=== PATIENT | male | born 1960 | race Caucasian/White ===

== ENCOUNTER 2016-12-11 09:18 | Emergency (ER) | payer BC, OTHER ==
[~2016-12-11] VITALS: Ht 182.9 cm; Wt 109.1 kg
[2016-12-11 10:09] LABS: BASO # 0.1 K/mm3 (0.0-0.2); BASO % 1.1 % (0.0-1.0); EOS # 0.1 K/mm3 (0.0-0.50); LARGE UNSTAINED CELL # 0.1 K/mm3 (0.0-0.4); LARGE UNSTAINED CELL % 1.5 % (0.0-4.0); LYMPH # 1.5 K/mm3 (1.5-4.5); LYMPH % 21.2 % (24.0-44.0); MEAN CORPUSCULAR HEMOGLOBIN 31.6 pg (27.0-33.0); MEAN CORPUSCULAR HGB CONC 34.6 g/dl (32.0-36.5); MEAN CORPUSCULAR VOLUME 91.2 fl (80.0-96.0); MONO # 0.5 K/mm3 (0.0-0.8); MONO % 7.2 % (0.0-5.0); NEUTROPHILS # 4.4 K/mm3 (1.8-7.7); NEUTROPHILS % 67.1 % (36.0-66.0); PLATELET COUNT, AUTOMATED 221 k/mm3 (150-450); RED CELL DISTRIBUTION WIDTH 11.8 % (11.5-14.5); WHITE BLOOD COUNT 6.5 K/mm3 (4.0-10.0)
--- NOTE | 2016-12-11 10:13 | REP ---
CT of the brain without IV contrast: There are no comparisons. There is no hemorrhage. There is no edema, mass effect or midline shift. Cortical stripe is unremarkable. The ventricles and sulci are mildly dilated compatible with mild diffuse volume loss. The visualized paranasal sinuses and mastoid air cells are clear. Impression: There is no hemorrhage, acute infarct or mass. There is mild diffuse volume loss. Signed by Janusz Lucero MD 12/11/2016 10:05 A
[2016-12-11 10:27] LABS: ALBUMIN 4.1 GM/DL (3.2-5.2); ALBUMIN/GLOBULIN RATIO 0.98 (1.00-1.93); ALKALINE PHOSPHATASE 60 U/L (45-117); ALT/SGPT 68 U/L (12-78); ANION GAP 6 MEQ/L (8-16); AST/SGOT 43 U/L (15-37); BILIRUBIN,DIRECT 0.1 MG/DL (0.0-0.2); BILIRUBIN,TOTAL 0.6 MG/DL (0.2-1.0); BLOOD UREA NITROGEN 11 MG/DL (7-18); CALCIUM LEVEL 9.5 MG/DL (8.5-10.1); CARBON DIOXIDE LEVEL 29 MEQ/L (21-32); CHLORIDE LEVEL 106 MEQ/L (98-107); CREATININE FOR GFR 0.89 MG/DL (0.70-1.30); GLOMERULAR FILTRATION RATE > 60.0 (>56); GLUCOSE, FASTING 107 MG/DL (70-105); POTASSIUM SERUM 4.4 MEQ/L (3.5-5.1); SODIUM LEVEL 141 MEQ/L (136-145); TOTAL PROTEIN 8.3 GM/DL (6.4-8.2)
[2016-12-11 10:54] VITALS: BP 137/82
--- NOTE | 2016-12-12 08:55 | ECGEPIP ---
Stationary ECG Study [facility] - ED Test Date: 2016-12-11 Pat Name: RUBY BEAULIEU Department: Room: - Gender: M [employer]: JT : 1960 Requested By: Jordana Cannon Order Number: [id number] Reading MD: Jordana Cannon Measurements Intervals [place] Rate: 59 P: 24 OH: 176 QRS: -14 QRSD: 105 T: 9 QT: 428 QTc: 424 Interpretive Statements SINUS BRADYCARDIA NO PRIOR FOR COMPARISON Electronically Signed On 12-12-2016 8:55:46 EDT by Jordana Cannon
== END 2016-12-11 11:06 | disposition home or self-care (01) ==
LOC: M ED 09:18
DX: H81.399 Other peripheral vertigo, unspecified ear (principal)

== ENCOUNTER → 2016-12-12 | Outpatient (CLI) | payer BC, OTHER ==
--- NOTE | 2016-12-13 05:28 | REP ---
Clinical: Visual disturbances and unsteady gait. Comparison: 08/03/2004 Technique: Turner scale and color Doppler evaluation using linear high frequency transducer Findings: Two-dimensional turner scale and color images demonstrate intimal thickening and small amounts of mixed plaquing along the common carotid arteries extending to the carotid bulbs (right greater than left). Otherwise normal arterial lumen with normal laminar flow and no appreciable narrowing. Color Doppler interrogation demonstrates normal arterial wave patterns and velocities with no significant spectral broadening. Normal flow direction is appreciated in the bilateral vertebral arteries. RIGHT (cm/s) LEFT (cm/s) ICA peak systolic velocity 67.6 54.3 ICA diastolic velocity 29.2 22.0 ECA peak systolic velocity 79.3 73.4 CCA peak systolic velocity 84.3 129.6 ICA/CCA ratio 0.80 0.42 Impression: No hemodynamically significant areas of narrowing or stenosis appreciated. Based on set standards narrowing falls within the less than 50% range. Signed by Long Casas MD 12/13/2016 05:20 A
== END ==
LOC: M RAD 08:19
PROVIDERS: ATTEND Emergency Medicine
DX: H53.8 Other visual disturbances (principal)

== ENCOUNTER → 2019-10-12 | Outpatient (CLI) | payer BC, OTHER ==
[~2019-10-12] MED LIST: ZETI10TA16 PO
== END ==
LOC: M LABSMTC 10:41
PROVIDERS: ATTEND Anesthesiology
DX: Z01.812 Encounter for preprocedural laboratory examination (principal); Z11.59 Encounter for screening for other viral diseases

== ENCOUNTER 2019-10-15 09:15 | Day surgery (SDC) | payer BC, OTHER ==
[~2019-10-15] VITALS: Ht 182.9 cm; Wt 99.1 kg
[~2019-10-15 09:15] MED LIST changes: +NS 1,000 ML IV ONE
[2019-10-15] MEDS ORDERED: propofoL 500 MG/50 ML VIAL As Ordered ONE (11:04)
[2019-10-15] MEDS ORDERED: LIDOCAINE 2% 100MG/5ML SDV (FOR ANES.) As Ordered ONE (11:04)
--- NOTE | 2019-10-15 11:29 | ROOR ---
Patient Name: Thanh Sapp Procedure Date: 10/15/2019 10:49 AM Date of : 1960 Age: 59 Room: [facility] Gender: Male Note Status: Finalized Procedure: Total Colonoscopy to Cecum + Cold Snare Polypectomy + Hemoclips Indications: High risk colon cancer surveillance: Personal history of colonic polyps, Last colonoscopy: 2014 Providers: Navi Mccullough MD Referring MD: Luis Cárdenas Jr, Md Requesting Provider: Medicines: Monitored Anesthesia Care Complications: No immediate complications. Procedure: Pre-Anesthesia Assessment: - The heart rate, respiratory rate, oxygen saturations, blood pressure, adequacy of pulmonary ventilation, and response to care were monitored throughout the procedure. The Colonoscope was introduced through the anus and advanced to the cecum, identified by appendiceal orifice and ileocecal valve. The colonoscopy was performed without difficulty. The patient tolerated the procedure well. The quality of the bowel preparation was excellent. Findings: The perianal and digital rectal examinations were normal. Non-bleeding internal hemorrhoids were found during retroflexion. The hemorrhoids were small and Grade I (internal hemorrhoids that do not prolapse). Scattered small-mouthed diverticula were found in the recto-sigmoid colon, sigmoid colon and descending colon. A medium polyp was found at 60 cm proximal to the anus. The polyp was sessile. The polyp was removed with a cold snare. Resection and retrieval were complete. To prevent bleeding after the polypectomy, one hemostatic clip was successfully placed (MR conditional). There was no bleeding at the end of the procedure. A medium polyp was found in the splenic flexure. The polyp was semi-pedunculated. The polyp was removed with a cold snare. Resection and retrieval were complete. To prevent bleeding after the polypectomy, one hemostatic clip was successfully placed (MR conditional). There was no bleeding at the end of the procedure. A small polyp was found in the cecum. The polyp was sessile. The polyp was removed with a cold snare. Resection and retrieval were complete. To prevent bleeding after the polypectomy, one hemostatic clip was successfully placed (MR conditional). There was no bleeding at the end of the procedure. The exam was otherwise without abnormality on direct and retroflexion views. Impression: - Non-bleeding internal hemorrhoids. - Diverticulosis in the recto-sigmoid colon, in the sigmoid colon and in the descending colon. - One medium polyp at 60 cm proximal to the anus, removed with a cold snare. Resected and retrieved. Clip (MR conditional) was placed. - One medium polyp at the splenic flexure, removed with a cold snare. Resected and retrieved. Clip (MR conditional) was placed. - One small polyp in the cecum, removed with a cold snare. Resected and retrieved. Clip (MR conditional) was placed. - The examination was otherwise normal on direct and retroflexion views. - The exam was otherwise normal to the cecum. Recommendation: - Patient has a contact number available for emergencies. The signs and symptoms of potential delayed complications were discussed with the patient. Return to normal activities tomorrow. Written discharge instructions were provided to the patient. - High fiber diet. - Discharge patient to home. - Continue present medications. - Await pathology results. - Telephone GI clinic for pathology results in 1 week. - Repeat colonoscopy in 5 years for surveillance based on pathology results. - Return to referring physician. - The findings and recommendations were discussed with the patient's family. Navi Mccullough MD Navi Mccullough MD 10/15/2019 11:28:56 AM Electronically signed by Navi Mccullough MD Number of Addenda: 0 Note Initiated On: 10/15/2019 10:49 AM Estimated Blood Loss: Estimated blood loss: none.
[2019-10-15 12:52] VITALS: BP 135/74
== END 2019-10-15 12:53 | disposition home or self-care (01) ==
LOC: M OPP 09:15
PROVIDERS: ATTEND Internal Medicine Gastroenterology
DX: Z12.11 Encounter for screening for malignant neoplasm of colon (principal); Z86.010 Personal history of colon polyps; D12.6 Benign neoplasm of colon, unspecified; D12.3 Benign neoplasm of transverse colon; D12.0 Benign neoplasm of cecum; K64.0 First degree hemorrhoids; K57.30 Diverticulosis of large intestine without perforation or abscess without bleeding; Z79.899 Other long term (current) drug therapy

== ENCOUNTER → 2019-12-10 | Outpatient (CLI) | payer BC, OTHER ==
[~2019-12-10] MED LIST changes: -NS 1,000 ML IV ONE
--- NOTE | 2019-12-10 10:54 | REP ---
Clinical: Trauma. Technique: Frontal view of the chest with four views of the left hemithorax. Findings: Frontal view of the chest demonstrates no acute cardiopulmonary process. Multiple views of the the left hemithorax demonstrates no obvious acute rib fracture or pathology. Impression: Normal left rib series Electronically Signed by Long Casas MD 12/10/2019 10:46 A
== END ==
LOC: M WUC 09:57
PROVIDERS: ATTEND Physician Assistant
DX: S20.212A Contusion of left front wall of thorax, initial encounter (principal); X58.XXXA Exposure to other specified factors, initial encounter; Y92.89 Other specified places as the place of occurrence of the external cause

== ENCOUNTER → 2021-02-09 | Outpatient (CLI) | payer BC, OTHER | LOC: M LABSMTC 09:27 | PROVIDERS: ATTEND Anesthesiology | DX: Z11.52 Encounter for screening for COVID-19 (principal); Z20.822 Contact with and (suspected) exposure to COVID-19 ==

== ENCOUNTER 2021-02-14 10:19 | Day surgery (SDC) | payer BC, OTHER ==
[~2021-02-14] VITALS: Ht 182.9 cm; Wt 103.4 kg
[~2021-02-14 10:19] MED LIST changes: +NS 1,000 ML IV ONE
[2021-02-14] MEDS ORDERED: propofoL 200 MG/20 ML VIAL As Ordered ONE ×2 (12:31→12:34)
--- NOTE | 2021-02-14 12:55 | ROOR ---
Patient Name: Thanh Sapp Procedure Date: 02/14/2021 12:22 PM Date of : 1960 Age: 60 Room: [facility] Gender: Male Note Status: Finalized Procedure: Total Colonoscopy to Cecum + Biopsy +Cold Snare Polypectomy + Hemoclips Indications: High risk colon cancer surveillance: Personal history of adenoma with villous component Providers: Navi Mccullough MD Referring MD: SCOT VILLA JR, MD Requesting Provider: Medicines: Monitored Anesthesia Care Complications: No immediate complications. Procedure: Pre-Anesthesia Assessment: - The heart rate, respiratory rate, oxygen saturations, blood pressure, adequacy of pulmonary ventilation, and response to care were monitored throughout the procedure. The Colonoscope was introduced through the anus and advanced to the cecum, identified by appendiceal orifice and ileocecal valve. The colonoscopy was performed without difficulty. The patient tolerated the procedure well. The quality of the bowel preparation was good. Findings: The perianal and digital rectal examinations were normal. Non-bleeding internal hemorrhoids were found during retroflexion. The hemorrhoids were small and Grade I (internal hemorrhoids that do not prolapse). A medium polyp was found at 35 cm proximal to the anus. The polyp was sessile. The polyp was removed with a cold snare. Resection and retrieval were complete. To prevent bleeding after the polypectomy, one hemostatic clip was successfully placed. There was no bleeding at the end of the procedure. A small polyp was found at 60 cm proximal to the anus. The polyp was sessile. The polyp was removed with a jumbo cold forceps. Resection and retrieval were complete. A small polyp was found in the mid ascending colon. The polyp was sessile. The polyp was removed with a jumbo cold forceps. Resection and retrieval were complete. The exam was otherwise without abnormality on direct and retroflexion views. Impression: - Non-bleeding internal hemorrhoids. - One medium polyp at 35 cm proximal to the anus, removed with a cold snare. Resected and retrieved. Clip was placed. - One small polyp at 60 cm proximal to the anus, removed with a jumbo cold forceps. Resected and retrieved. - One small polyp in the mid ascending colon, removed with a jumbo cold forceps. Resected and retrieved. - The examination was otherwise normal on direct and retroflexion views. - The exam was otherwise normal to the cecum. Recommendation: - Patient has a contact number available for emergencies. The signs and symptoms of potential delayed complications were discussed with the patient. Return to normal activities tomorrow. Written discharge instructions were provided to the patient. - High fiber diet. - Discharge patient to home. - Continue present medications. - Await pathology results. - Telephone GI clinic for pathology results in 1 week. - Repeat colonoscopy in 3 years for surveillance based on pathology results. - Return to referring physician. - The findings and recommendations were discussed with the patient. Procedure Code(s): --- Professional --- 69645, Colonoscopy, flexible; with removal of tumor(s), polyp(s), or other lesion(s) by snare technique 28594, 59, Colonoscopy, flexible; with biopsy, single or multiple Diagnosis Code(s): --- Professional --- Z86.010, Personal history of colonic polyps K64.0, First degree hemorrhoids K63.5, Polyp of colon CPT copyright 2019 [employer]. All rights reserved. The codes documented in this report are preliminary and upon curtain framer review may be revised to meet current compliance requirements. Navi Mccullough MD Navi Mccullough MD 02/14/2021 12:55:01 PM Electronically signed by Navi Mccullough MD Number of Addenda: 0 Note Initiated On: 02/14/2021 12:22 PM Estimated Blood Loss: Estimated blood loss: none.
[2021-02-14 13:05] VITALS: BP 161/87
== END 2021-02-14 13:11 | disposition home or self-care (01) ==
LOC: M OPP 10:19
PROVIDERS: ATTEND Internal Medicine Gastroenterology
DX: K63.5 Polyp of colon (principal); K64.0 First degree hemorrhoids; Z86.010 Personal history of colon polyps; Z09 Encounter for follow-up examination after completed treatment for conditions other than malignant neoplasm; Z79.899 Other long term (current) drug therapy; F17.220 Nicotine dependence, chewing tobacco, uncomplicated

== ENCOUNTER 2021-04-23 06:08 | Emergency (ER) | payer BC, OTHER ==
[~2021-04-23] VITALS: Ht 182.9 cm; Wt 104.5 kg
[~2021-04-23 06:08] MED LIST changes: -NS 1,000 ML IV ONE
[2021-04-23 06:09] VITALS: BP 146/77
--- OUTSIDE RECORDS SUMMARY | 2021-04-23 06:22 | CCD | Continuity of Care Document ---
Author Author Thanh MCCULLOUGH M.D. Organization Unknown Address [address] [place] [id number] Phone [phone] Care Team Providers Care Care Management Specialist Name Role Phone Luis Cárdenas M.D. AUTM [phone] Problems Active Problems Provider Date Screening for malignant neoplasm of colon Navi ramirez M.D. Onset: 09/30/2019 Screening for malignant neoplasm of colon Navi ramirez M.D. Onset: 10/15/2014 Social History Type Date Description Comments Sex Unknown ETOH Use Occasionally Tobacco Use Start: Unknown Patient has never smoked Allergies and adverse reactions Description No Known Drug Allergies Medications Active Medications SIG Qnty Indications Ordering Provide r Date Suprep Bowel Prep Kit 17.5-3.13-1.6GM/177ML Solution use as directed 354ml Navi Mccullough M.D. 12/28/2020 Ezetimibe 10mg Tablets TK 1 T PO qd Unknown Immunizations Description No Information Available Vital Signs Date Vital Result Comment 12/28/2020 11:39am Height 72 inches 6'0" Weight 214.00 lb BP Systolic 128 mmHg BP Diastolic 82 mmHg Heart Rate 60 /min BMI (Body Mass Index) 29.0 kg/m2 Weight 97.070 kg Body Temperature 96.3 F 09/30/2019 10:08am Height 72 inches 6'0" Temp 96. 8 Weight 227.00 lb BP Systolic 135 mmHg BP Diastolic 81 mmHg Heart Rate 78 /min BMI (Body Mass Index) 30.8 kg/m2 Weight 102.967 kg Results Test Acquired Date Facility Test Result H/L Range Note Laboratory test finding 02/14/2021 [facility] [address] [place] [address] Pathology Request For Service (SEE NOTE) 1, 2 1 FINAL DIAGNOSIS A-Ascending colon polyps, polypectomy: Tubular adenoma. Separate fragment of colonic mucosa with hyperplastic changes. B-Colon, polyp @ 60cm, polypectomy: Tubular adenoma. C-Colon, polyp @ 35cm, polypectomy: Tubular adenoma, fragments. Separate fragment of colonic mucosa with hyperplastic changes. 02/15/2021 - 1247 CLINICAL DIAGNOSIS H/O colon polyps 02/15/2021 - 0748 GROSS DIAGNOSIS A - Received in formalin labeled "ascending colon polyps" and consists of fragments of tissue 0.2 x 0.1 x 0.1 cm. All in one. B - Received in formalin labeled "colon polyp @ 60 cm." and consists of fragment of tissue 0.2 x 0.1 x 0.1 cm. All in one. C - Received in formalin labeled "polyp @ 35 cm." and consists of fragmenst of tissue 0.2 x 0.1 x 0.1 cm. All in one. -OA 02/15/2021 - 1247 Signed GIOVANNY THOMAS MD 02/15/2021 1248 2 02/15/21 (SunFeb 15) 04:20 PM NAVI MCCULLOUGH Multiple polyps Scope in 3 yrs Procedures Date Code Description Status 02/14/2021 57236 Colonoscopy Flexible Remove Tumo r/Polyp/Lesion Snare Technique Completed 12/28/2020 40794 Office/Outpatient Established Lo w MDM 20-29 Min Completed Medical Devices Description No Information Available Encounters Type Date Location Provider Dx Diagnosis Office Visit 12/28/2020 11:30a Main Office Navi Mccullough M.D. Z 86.010 Personal history of colonic polyps Assessments Date Code Description Provider 02/14/2021 Z86.010 Personal history of colonic poly ps Navi Mccullough M.D. 02/14/2021 K63.5 Polyp of colon Navi santillan M.D. 02/14/2021 K64.0 First degree hemorrhoids Navi Mccullough M.D. 12/28/2020 Z86.010 Personal history of colonic poly ps Navi Mccullough M.D. Plan of Treatment 12/28/2020 - Navi Mccullough M.D.* Z86.010 Personal history of colonic polyps* Comments:* 60 yo wm who is here for a repeat colonoscopy to evaluate for polyps/positive tubullovillous adenoma. No c/o abdominal pain, change in bowel habits, or rectal bleeding. Good appetite. No family h/o colon cancer. Last scope in 2019. Denies associated appetite changes, dysphagia, indigestion, nausea, reflux, regurgitation, vomiting and weight change.Plan:1.Schedule patient for Colonoscopy. 2. Informed consent given.3. Advised to stop asa, plavix,and anticoagulation 3 to 7 days prior to the procedures. Functional Status Description No Information Available Mental Status Description No Information Available Referrals Description No Information Available
--- OUTSIDE RECORDS SUMMARY | 2021-04-23 06:22 | CCD ---
Author Author [facility] Organization [facility] Address Unknown Phone Unavailable Care Team Providers Care Sausage Tier Name Role Phone Aruna Mccullough MD Unavailable Unavailable Aruna Mccullough MD Unavailable Unavailable Aruna Mccullough MD Unavailable Unavailable Aruna Mccullough MD Unavailable Unavailable Aruna Mccullough MD Unavailable Unavailable Aruna Mccullough MD Unavailable Unavailable Aruna Mccullough MD Unavailable Unavailable Aruna Mccullough MD Unavailable Unavailable Aruna Mccullough MD Unavailable Unavailable Aruna Mccullough MD Unavailable Unavailable Aruna Mccullough MD Unavailable Unavailable Aruna Mccullough MD Unavailable Unavailable Aruna Mccullough MD Unavailable Unavailable Aruna Mccullough MD Unavailable Unavailable Aruna Mccullough MD Unavailable Unavailable Aruna Mccullough MD Unavailable Unavailable Aruna Mccullough MD Unavailable Unavailable Aruna Mccullough MD Unavailable Unavailable Aruna Mccullough MD Unavailable Unavailable Aruna Mccullough MD Unavailable Unavailable Aruna Mccullough MD Unavailable Unavailable Aruna Mccullough MD Unavailable Unavailable Aruna Mccullough MD Unavailable Unavailable Aruna Mccullough MD Unavailable Unavailable Aruna Mccullough MD Unavailable Unavailable Aruna Mccullough MD Unavailable Unavailable Aruna Mccullough MD Unavailable Unavailable Aruna Mccullough MD Unavailable Unavailable Aruna Mccullough MD Unavailable Unavailable Jamel, S Navi MD Unavailable Unavailable Jamel, S Navi MD Unavailable Unavailable Jamel, S Navi MD Unavailable Unavailable Jamel, S Navi MD Unavailable Unavailable Jamel, S Navi MD Unavailable Unavailable Jamel, S Navi MD Unavailable Unavailable Jamel, S Navi MD Unavailable Unavailable Jamel, S Navi MD Unavailable Unavailable Jamel, S Navi MD Unavailable Unavailable Jamel, S Navi MD Unavailable Unavailable Jamel, S Navi MD Unavailable Unavailable Jamel, S Navi MD Unavailable Unavailable Jamel, S Navi MD Unavailable Unavailable Jamel, S Navi MD Unavailable Unavailable Jamel, S Navi MD Unavailable Unavailable Jamel, S Navi MD Unavailable Unavailable Jamel, S Navi MD Unavailable Unavailable Jamel, S Navi MD Unavailable Unavailable Jamel, S Navi MD Unavailable Unavailable Jamel, S Navi MD Unavailable Unavailable Jamel, S Navi MD Unavailable Unavailable Jamel, S Navi MD Unavailable Unavailable MacQueen ([facility] COVID), DO NOT EDIT Blake JAIME Unavail able Unavailable [employer] - Staff, COVID Unavailable Unavailable Re-disclosure Warning The records that you are about to access may contain information from federally-assisted alcohol or drug abuse programs. If such information is present, then the following federally mandated warning applies: This information has been disclosed to you from records protected by federal confidentiality rules (42 CFR part 2). The federal rules prohibit you from making any further disclosure of this information unless further disclosure is expressly permitted by the written consent of the person to whom it pertains or as otherwise permitted by 42 CFR part 2. A general authorization for the release of medical or other information is NOT sufficient for this purpose. The Federal rules restrict any use of the information to criminally investigate or prosecute any alcohol or drug abuse patient.The records that you are about to access may contain highly sensitive health information, the redisclosure of which is protected by Article 27-F of the [place] State Public Health law. If you continue you may have access to information: Regarding HIV / AIDS; Provided by facilities licensed or operated by the [facility] Office of Mental Health; or Provided by the [facility] Office for People With Developmental Disabilities. If such information is present, then the following [facility] mandated warning applies: This information has been disclosed to you from confidential records which are protected by state law. State law prohibits you from making any further disclosure of this information without the specific written consent of the person to whom it pertains, or as otherwise permitted by law. Any unauthorized further disclosure in violation of state law may result in a fine or fpc sentence or both. A general authorization for the release of medical or other information is NOT sufficient authorization for further disc losure. Family History Family Member Name Family Member Gender Family Member Status Date o f Status Description Data Source(s) Unknown Unknown Problem MEDENT ([facility]) Unknown Male Unknown Unknown Problem [facility]ENT ([facility]) Encounters Encounter Providers Location Date Indications Data Source(s ) Outpatient Attender: Blake Donis ( [facility] COVID) MDConsultant: COVID [employer] - Staff 01/21/2021 12:25:00 PM EDT Covid Testing [facility] Covid Testing Outpatient Attender: Blake Donis ( [facility] COVID) MDConsultant: COVID [employer] - Staff 01/17/2021 04:22:00 PM EDT Covid Testing [facility] Covid Testing Outpatient Attender: Blake Donis ( [facility] COVID) MDConsultant: COVID [employer] - Staff 01/10/2021 12:56:00 PM EDT Covid Testing [facility] Covid Testing Outpatient Attender: Navi Mccullough MD Main Office 12/28/2020 11:30:00 AM EDT MEDENT ([facility]) Immunizations Vaccine Date Status Description Data Source(s) COVID-19 VACCINE [employer] 08/20/2020 12:00:00 AM EDT completed [facility]IS Vaccine Series Complete: YESThis Data wa s Submitted to [facility] Via [employer]. COVID-19 VACCINE [employer] 07/30/2020 12:00:00 AM EST completed [facility]IS Vaccine Series Complete: NOThis Data was Submitted to [facility] Via [employer]. Medications Medication Brand Name Start Date Product Form Dose Route Admi nistrative Instructions Pharmacy Instructions Status Indications Reaction Description Data Source(s) Suprep Bowel Prep Kit Suprep Bowel Prep Kit 12/28/2020 12:00:00 AM EDT active MEDENT ([facility]) Insurance Providers Payer name Policy type / Coverage type Policy ID Covered alliance party ID Covered alliance party's relationship to guo Policy Guo Plan Information [employer] Workers Compensation [id number] Self BCBS EMPIRE [place]ERRY DIV [id number] [place] [id number] UNITED HEALTHCARE [id number] WI2 [id number] BCBS EMPIRE CHERRY DIV [id number] [place]2 [id number] Mentcle Plan F [id number] SELF [id number] Mentcle Plan F [id number] SELF [id number] 2 Mentcle Plan F [id number] SELF [id number] 2 SELF PAY UNITED HEALTHCARE [id number] [place]2 89 [id number] United [employer] Commercial [id number] Family Dependent [id number] [facility] [id number] 0 1 [id number] EMPIRE BLUE CROSS BLUE SHIELD -O/P [id number] 01 [id number] EMPIRE BLUE CROSS BLUE SHIELD -O/P [id number] 18 [id number] UNITED HEALTHCARE O [id number] P [id number] United [employer] Commercial [id number] Family Depende nt United [employer] Health Maintenance Organization (HMO) [id number] Self United [employer]/[place] Health Maintenance Organization (HMO) [id number] Family Dependent P UNAVAILABLE UNAVAILA BLE BCBS EMPIRE CHERRY DIV [id number] [place]2 [id number] UNITED HEALTHCARE [id number] [place]2 89 [id number] EMPIRE ([facility]) O [id number] S [id number] [employer] Commercial [id number] Family Dependent [id number] [employer] Commercial [id number] Family Dependent [id number] [facility] [id number] 01 [id number] UNITED HEALTHCARE O [id number] S [id number] Problems, Conditions, and Diagnoses Code Display Name Description Problem Type Effective Dates Data Source(s) Z20.822 Z20.822 - Contact with and (suspected) e xposure to COVID-19 Z20.822 - Contact with and (suspected) exposure to COVID-19 Diagnosis 07/2020 12:25:00 PM EDT [facility] Surgeries/Procedures Procedure Description Date Indications Data Source(s) COLSC FLX PROX SPLENIC FLXR RMVL LES SNARE TQ 02/15/20 12:00:00 AM EDT MEDENT ([facility]) OFFICE OUTPATIENT VISIT 15 MINUTES 12/28/2020 12:00:00 AM EDT MEDENT ([facility]) Results ID Date Data Source [id number] 02/14/2021 12:47:00 PM EDT MEDENT ([facility]) Name Value Range Interpretation Code Description Data Radha rce(s) Supporting Document(s) Surgical pathology study [facility]) FINAL DIAGNOSIS A-Ascending colon polyps, polypectomy: Tubular [...] cm. All in one. -OA 02/15/2021 - 1248 Signed GIOVANNY THOMAS MD 02/15/2021 1248 ID Date Data Source [id number] 01/21/2021 12:25:00 PM EDT [facility] Name Value Range Interpretation Code Description Data Radha rce(s) Supporting Document(s) SARS-CoV-2 (COVID-19) N gene [Presence] in Specimen by Nucleic acid amplification using [facility] primer-p Undetected [facility] This lab was ordered by [facility] and reported by [facility]. ID Date Data Source [id number] 01/24/2021 11:23:00 AM EDT [facility] SalivaScreening Z20.822 [id number] Name Value Range Interpretation Code Description Data Radha rce(s) Supporting Document(s) SARS Coronavirus-2, RT-PCR Undetected Undetected [facility] Negative results do not preclude SARS-Co V-2 infection andshould not be used as the sole basis for patient managementdecisions.Per FDA guidelines, this test has been internally validatedat [facility] Laboratory utilizing known standards and patientsamples. Validation review by the FDA is pending.Source: SalivaTest Performed by:[facility] [place] [address]# [id number] ID Date Data Source [id number] 01/10/2021 12:56:00 PM EDT [facility] Name Value Range Interpretation Code Description Data Radha rce(s) Supporting Document(s) SARS-CoV-2 (COVID-19) N gene [Presence] in Specimen by Nucleic acid amplification using [facility] primer-p Undetected [facility] This lab was ordered by [facility] and reported by [facility]. ID Date Data Source [id number] 01/12/2021 07:42:00 AM EDT [facility] SalivaScreening Z20.822 [id number] Name Value Range Interpretation Code Description Data Radha rce(s) Supporting Document(s) SARS Coronavirus-2, RT-PCR Undetected Undetected [facility] Negative results do not preclude SARS-Co V-2 infection andshould not be used as the sole basis for patient managementdecisions.Per FDA guidelines, this test has been internally validatedat [facility] Laboratory utilizing known standards and patientsamples. Validation review by the FDA is pending.Source: SalivaTest Performed by:[facility] [place] [address]# [id number] Procedure Social History No Information Vital Signs ID Date Data Source UNK Name Value Range Interpretation Code Description Data Source(s) Body temperature 96.3 [degF] 96.3 [degF] MEDENT ([facility]) Systolic blood pressure 128 mm[Hg] 128 mm[Hg] M EDENT ([facility]) Diastolic blood pressure 82 mm[Hg] 82 mm[Hg] MEDENT ([facility]) Heart rate 60 /min 60 /min [facility] ([facility]) Body mass index (BMI) [Ratio] 29.0 kg/m2 29.0 k g/m2 MEDENT ([facility]) Body weight 97.070 kg 97.070 kg MEDENT ([facility] tive [facility]) Body height 72 [in_i] 72 [in_i] [facility] 6'0" Body weight 214.00 [lb_av] 214.00 [lb_av] MEDEN T ([facility])
--- OUTSIDE RECORDS SUMMARY | 2021-04-23 06:22 | CCD | Continuity of Care Document ---
Author Author Thanh MCCULLOUGH M.D. Organization Unknown Address [address] [place] [address] Phone [phone] Care Team Providers Care Operations Boardman Name Role Phone Luis Cárdenas M.D. AUTM [phone] Problems Active Problems Provider Date Screening for [...] H/L Range Note Laboratory test finding 02/14/2021 [facility] [address] [place] [address] Pathology Request For Service (SEE NOTE) 1, [...] yrs Procedures Date Code Description Status 02/14/2021 00731 Colonoscopy Flexible Remove Tumo r/Polyp/Lesion Snare Technique Completed 12/28/2020 54820 Office/Outpatient Established Lo w MDM 20-29 Min [...]
--- OUTSIDE RECORDS SUMMARY | 2021-04-23 06:22 | CCD | Continuity of Care Document ---
Author Author Thanh MCCULLOUGH M.D. Organization Unknown Address [address] [place] [address] Phone [phone] Care Team Providers Care Student Name Role Phone Luis Cárdenas M.D. AUTM [phone] Problems Active Problems Provider Date Screening for [...] H/L Range Note Laboratory test finding 02/14/2021 [facility] [address] [place] [address] Pathology Request For Service (SEE NOTE) 1, [...] yrs Procedures Date Code Description Status 02/14/2021 14592 Colonoscopy Flexible Remove Tumo r/Polyp/Lesion Snare Technique Completed 12/28/2020 36773 Office/Outpatient Established Lo w MDM 20-29 Min [...]
[2021-04-23 07:19] LABS: BASO # 0.1 10^3/uL (0.0-0.2); BASO % 0.4 % (0.0-1.0); EOS # 0.1 10^3/uL (0.0-0.5); EOS % 0.6 % (0.0-3.0); HEMATOCRIT 43.5 % (42.0-52.0); HEMOGLOBIN 14.6 g/dl (13.5-17.5); LYMPH # 1.7 10^3/uL (1.5-5.0); LYMPH % 13.5 % (24.0-44.0); MEAN CORPUSCULAR HEMOGLOBIN 30.6 pg (27.0-33.0); MEAN CORPUSCULAR HGB CONC 33.6 g/dl (32.0-36.5); MEAN CORPUSCULAR VOLUME 91.2 fl (80.0-96.0); MONO # 1.2 10^3/uL (0.0-0.8); MONO % 9.8 % (2.0-8.0); NEUTROPHILS # 9.5 10^3/uL (1.5-8.5); NEUTROPHILS % 75.4 % (36.0-66.0); PLATELET COUNT, AUTOMATED 225 10^3/uL (150-450); RED BLOOD COUNT 4.77 10^6/uL (4.30-6.10); WHITE BLOOD COUNT 12.6 10^3/uL (4.0-10.0)
[2021-04-23] MEDS ORDERED: DOXY-350 PO (07:27)
--- OUTSIDE RECORDS SUMMARY | 2021-04-23 07:27 | CCD ---
Author [facility] Organization [facility] Address Unknown Phone Unavailable Care Team Providers Care Rail Car Loader Name Role Phone Aruna Mccullough MD Unavailable [...] Jamel, S Navi MD Unavailable Unavailable MacQueen ([facility] COVID), DO NOT EDIT Blake JAIME Unavail able Unavailable [employer] - Staff, COVID Unavailable Unavailable Re-disclosure [...] is protected by Article 27-F of the [place] State Public Health law. If you continue you may have access to information: Regarding HIV / AIDS; Provided by facilities licensed or operated by the [facility] Office of Mental Health; or Provided by the [facility] Office for People With Developmental Disabilities. If such information is present, then the following [facility] mandated warning applies: This information has been [...] Source(s ) Outpatient Attender: Blake Donis ( [facility] COVID) MDConsultant: COVID [employer] - Staff 01/21/2021 12:25:00 PM EDT Covid Testing [facility] Covid Testing Outpatient Attender: Blake Donis ( [facility] COVID) MDConsultant: COVID [employer] - Staff 01/17/2021 04:22:00 PM EDT Covid Testing [facility] Covid Testing Outpatient Attender: Blake Donis ( [facility] COVID) MDConsultant: COVID [employer] - Staff 01/10/2021 12:56:00 PM EDT Covid Testing [facility] Covid Testing Outpatient Attender: Navi Mccullough MD Main Office 12/28/2020 11:30:00 AM EDT MEDENT ([facility]) Immunizations Vaccine Date Status Description Data Source(s) COVID-19 VACCINE [employer] 08/20/2020 12:00:00 AM EDT completed [facility]IS Vaccine Series Complete: YESThis Data wa s Submitted to [facility] Via [employer]. COVID-19 VACCINE [employer] 07/30/2020 12:00:00 AM EST completed [facility] Vaccine Series Complete: NOThis Data was Submitted to [facility] Via [employer]. Medications Medication Brand Name Start Date Product [...] Plan Information [employer] Workers Compensation [id number] Self BCBS EMPIRE CHERRY DIV [id number] WI2 [id number] UNITED HEALTHCARE [id number] WI2 89 [id number] BCBS EMPIRE CHERRY DIV [id number] WI2 [id number] [place] Plan F [id number] SELF [id number] [place] Plan F [id number] SELF [id number] 2 [place] Plan F [id number] SELF [id number] 2 SELF PAY UNITED [employer]CARE [id number] WI2 89 [id number] [employer] [place] Commercial [id number] Family Dependent [id number] [facility] [id number] 0 1 [id number] EMPIRE BLUE CROSS BLUE SHIELD -O/P [id number] 01 [id number] EMPIRE BLUE CROSS BLUE SHIELD -O/P [id number] 18 [id number] UNITED [employer] O [id number] P [id number] [employer] [place] Commercial [id number] Family Depende nt [employer] [place] Health Maintenance Organization (HMO) [id number] Self [employer] Health Maintenance Organization (HMO) [id number] Family Dependent P UNAVAILABLE UNAVAILA BLE BCBS EMPIRE CHERRY DIV [id number] WI2 [id number] UNITED HEALTHCARE [id number] WI2 89 [id number] EMPIRE ([facility]) O [id number] S [id number] [employer] [place] Commercial [id number] Family Dependent 8 [id number] [employer] [place] Commercial [id number] Family Dependent [id number] [facility] [id number] 01 [id number] [employer] O [id number] S [id number] Problems, Conditions, and Diagnoses Code Display Name Description Problem Type Effective Dates Data Source(s) Z20.822 Z20.822 - Contact with and (suspected) e xposure to COVID-19 Z20.822 - Contact with and (suspected) exposure to COVID-19 Diagnosis 07/2020 12:25:00 PM EDT [facility] Surgeries/Procedures Procedure Description Date Indications Data Source(s) COLSC FLX PROX SPLENIC FLXR RMVL LES SNARE TQ 02/15/20 12:00:00 AM EDT MEDENT ([facility]) OFFICE OUTPATIENT VISIT 15 MINUTES 12/28/2020 12:00:00 AM EDT MEDENT ([facility]) Results ID Date Data Source [id number] 02/14/2021 12:47:00 PM EDT MEDENT ([facility]) Name Value Range Interpretation Code Description Data Radha rce(s) Supporting Document(s) Surgical pathology study [facility] test [facility] ([facility]) FINAL DIAGNOSIS A-Ascending colon polyps, polypectomy: Tubular [...] MD 02/15/2021 1248 ID Date Data Source [id number] 01/21/2021 12:25:00 PM EDT [facility] Name Value Range Interpretation Code Description Data Radha rce(s) Supporting Document(s) SARS-CoV-2 (COVID-19) N gene [Presence] in Specimen by Nucleic acid amplification using [facility] primer-p Undetected [facility] This lab was ordered by [facility] and reported by [facility]. ID Date Data Source [id number] 01/24/2021 11:23:00 AM EDT [facility] SalivaScreening Z20.822 [id number] Name Value Range Interpretation Code Description Data Radha rce(s) Supporting Document(s) SARS Coronavirus-2, RT-PCR Undetected Undetected [facility] Negative results do not preclude SARS-Co V-2 infection andshould not be used as the sole basis for patient managementdecisions.Per FDA guidelines, this test has been internally validatedat [facility] utilizing known standards and patientsamples. Validation review by the FDA is pending.Source: SalivaTest Performed by:[employer] [place] [address]# [id number] ID Date Data Source [id number] 01/10/2021 12:56:00 PM EDT [facility] Name Value Range Interpretation Code Description Data Radha rce(s) Supporting Document(s) SARS-CoV-2 (COVID-19) N gene [Presence] in Specimen by Nucleic acid amplification using [facility] primer-p Undetected [facility] This lab was ordered by [facility] and reported by [facility]. ID Date Data Source [id number] 01/12/2021 07:42:00 AM EDT [facility] SalivaScreening Z20.822 [id number] Name Value Range Interpretation Code Description Data Radha rce(s) Supporting Document(s) SARS Coronavirus-2, RT-PCR Undetected Undetected [facility] Negative results do not preclude SARS-Co V-2 infection andshould not be used as the sole basis for patient managementdecisions.Per FDA guidelines, this test has been internally validatedat [facility] utilizing known standards and patientsamples. Validation review by the FDA is pending.Source: SalivaTest Performed by:[employer] [place] [address]# [id number] Procedure Social History No Information Vital Signs [...] Body weight 97.070 kg 97.070 kg MEDENT ([facility] tive [facility]) Body height 72 [in_i] 72 [in_i] [facility] 6'0" Body weight 214.00 [lb_av] 214.00 [lb_av] MEDEN T ([facility])
--- NOTE | 2021-04-23 08:07 | REP ---
INDICATION: fever and cough. COMPARISON: Comparison chest x-ray December 10, 2019. TECHNIQUE: Sitting portable AP radiograph. FINDINGS: The lungs are symmetrically aerated. No infiltrate is seen. Pleural angles are sharp. Heart size is normal. There are mild degenerative changes in the thoracic spine. Pulmonary vasculature is not increased. IMPRESSION: No acute disease. <Electronically signed by Erwin Alcocer > 04/23/21 0860
== END 2021-04-23 07:35 | disposition home or self-care (01) ==
LOC: M ED 06:08
DX: J42 Unspecified chronic bronchitis (principal); I10 Essential (primary) hypertension; E78.5 Hyperlipidemia, unspecified; Z79.899 Other long term (current) drug therapy

== ENCOUNTER 2021-06-22 20:54 | Inpatient (IN) | payer BC, OTHER ==
[~2021-06-22] VITALS: Ht 182.9 cm; Wt 59.1 kg
[~2021-06-22 20:54] MED LIST changes: +DOXY-350 PO
[2021-06-22] MEDS ORDERED: ISOVUE-370 76% 100ML VIAL As Ordered ONE (21:17)
[2021-06-22 21:27] LABS: BASO # 0.1 10^3/uL (0.0-0.2); BASO % 0.7 % (0.0-1.0); EOS # 0.1 10^3/uL (0.0-0.5); EOS % 0.7 % (0.0-3.0); HEMATOCRIT 39.8 % (42.0-52.0); HEMOGLOBIN 13.6 g/dl (13.5-17.5); LYMPH # 1.7 10^3/uL (1.5-5.0); LYMPH % 14.3 % (24.0-44.0); MEAN CORPUSCULAR HEMOGLOBIN 30.6 pg (27.0-33.0); MEAN CORPUSCULAR HGB CONC 34.2 g/dl (32.0-36.5); MEAN CORPUSCULAR VOLUME 89.6 fl (80.0-96.0); MONO # 0.8 10^3/uL (0.0-0.8); MONO % 6.8 % (2.0-8.0); NEUTROPHILS # 9.2 10^3/uL (1.5-8.5); NEUTROPHILS % 76.8 % (36.0-66.0); PLATELET COUNT, AUTOMATED 217 10^3/uL (150-450); RED BLOOD COUNT 4.44 10^6/uL (4.30-6.10)
[2021-06-22 21:37] LABS: INR 0.96; PROTHROMBIN TIME 13.2 SECONDS (12.7-14.5)
[2021-06-22 21:51] LABS: MB/CK RELATIVE INDEX 1.97 (< OR =4)
[2021-06-22 21:53] LABS: ETHYL ALCOHOL (ETHANOL) 0.146 % (0.000-0.010)
[2021-06-22 22:01] VITALS: BP 134/61
[2021-06-22 22:13] LABS: FOLATE 9.1 NG/ML (>5.4)
[2021-06-22] MEDS ORDERED: ASPIRIN 81 MG CHEW TABLET PO ONE (23:45)
[2021-06-22] MEDS ORDERED: MAALOX 30 ML SUSP *UDC PO PRN (23:45)
[2021-06-22] MEDS ORDERED: MOM 30ML SUSPENSION UDC PO PRN (23:45)
[2021-06-22] MEDS ORDERED: ACETAMINOPHEN TAB 650MG DOSE (2X325MG) PO PRN (23:45)
[2021-06-22] MEDS ORDERED: ATORVASTATIN 20 MG TAB PO SCH (23:45)
[2021-06-22] MEDS ORDERED: LORazepam 2 MG TAB PO PRN (23:50)
[2021-06-23] MEDS ORDERED: ATOR1TAB21 PO (02:58)
[2021-06-23] MEDS ORDERED: ASPI81CH8 PO (02:58)
[2021-06-23] MEDS ORDERED: FOLIC ACID 1 MG TAB PO SCH (09:00)
[2021-06-23] MEDS ORDERED: MULTIVITAMINS/MINERALS THERAP 1 TAB PO SCH (09:00)
[2021-06-23] MEDS ORDERED: ASPIRIN 81 MG CHEW TABLET PO SCH (09:00)
[2021-06-23] MEDS ORDERED: THIAMINE 100 MG TAB PO SCH (09:00)
== END 2021-06-23 01:00 | disposition left against medical advice (07) | DRG 111 ==
LOC: M ED 20:54 → M ED INP 23:44
PROVIDERS: ADMIT Family Medicine; ATTEND Family Medicine
DX: R42 Dizziness and giddiness (principal); F10.10 Alcohol abuse, uncomplicated; Z90.49 Acquired absence of other specified parts of digestive tract; H53.8 Other visual disturbances; Z79.899 Other long term (current) drug therapy; Z20.822 Contact with and (suspected) exposure to COVID-19; Z91.14 Patient's other noncompliance with medication regimen; Z91.19 Patient's noncompliance with other medical treatment and regimen

== ENCOUNTER 2022-06-09 07:44 | Emergency (ER) | payer BC, OTHER ==
[~2022-06-09] VITALS: Ht 182.9 cm; Wt 102.3 kg
[~2022-06-09 07:44] MED LIST changes: +ASPI81CH8 PO; +ATOR1TAB21 PO; -DOXY-350 PO; +DOXY-444 PO
[2022-06-09] MEDS ORDERED: ONDANSETRON 4MG 2ML VIAL IV ONE (08:40)
[2022-06-09] MEDS ORDERED: MORPHINE 4 MG/ML 1ML VIAL IV ONE (08:40)
[2022-06-09] MEDS ORDERED: NS 500 ML IV ONE (08:40)
[2022-06-09 09:06] LABS: BASO # 0.1 10^3/uL (0.0-0.2); BASO % 1.3 % (0.0-1.0); EOS # 0.1 10^3/uL (0.0-0.5); EOS % 1.7 % (0.0-3.0); HEMATOCRIT 45.8 % (42.0-52.0); HEMOGLOBIN 15.1 g/dl (13.5-17.5); LYMPH # 1.6 10^3/uL (1.5-5.0); LYMPH % 24.8 % (24.0-44.0); MEAN CORPUSCULAR HEMOGLOBIN 30.3 pg (27.0-33.0); MONO # 0.6 10^3/uL (0.0-0.8); NEUTROPHILS # 3.9 10^3/uL (1.5-8.5); NEUTROPHILS % 61.7 % (36.0-66.0); PLATELET COUNT, AUTOMATED 240 10^3/uL (150-450); RED BLOOD COUNT 4.98 10^6/uL (4.30-6.10); WHITE BLOOD COUNT 6.3 10^3/uL (4.0-10.0)
[2022-06-09] MEDS ORDERED: ISOVUE-370 76% 100ML VIAL As Ordered ONE (09:16)
[2022-06-09 09:29] LABS: LIPASE 43 U/L (12-53)
[2022-06-09 09:31] LABS: ALBUMIN 3.9 G/DL (3.2-5.2); ALKALINE PHOSPHATASE 48 U/L (46-116); ALT/SGPT 30 U/L (7.0-40); AST/SGOT 27 U/L (<34); BILIRUBIN,DIRECT 0.2 MG/DL (<0.4); BILIRUBIN,TOTAL 0.7 MG/DL (0.3-1.2); TOTAL PROTEIN 7.2 G/DL (5.7-8.2)
[2022-06-09 10:38] LABS: CK-MB VALUE MASS < 1.0 NG/ML (<3.6)
[2022-06-09 10:48] LABS: CPK CREATINE PHOSPHOKINASE 120 U/L (46-171); MB/CK RELATIVE INDEX 0.83 (< OR =4)
[2022-06-09] MEDS ORDERED: IBUP-1022 PO (11:23)
[2022-06-09 11:38] VITALS: BP 146/75
== END 2022-06-09 11:44 | disposition home or self-care (01) ==
LOC: M ED 07:44
DX: R10.9 Unspecified abdominal pain (principal); R00.1 Bradycardia, unspecified; E78.5 Hyperlipidemia, unspecified; F10.10 Alcohol abuse, uncomplicated; F32.A Depression, unspecified; Z79.02 Long term (current) use of antithrombotics/antiplatelets; Z79.899 Other long term (current) drug therapy
CPT/HCPCS: 71046; 71275; 72072; 72110; 74177; 80047; 80076; 81002; 82550; 82553; 83690; 84484; 85025; 93005; 96374; 96375; 99284; J2270; J2405

== ENCOUNTER 2024-01-14 10:42 | Day surgery (SDC) | payer MEDICARE, BC ==
[~2024-01-14] VITALS: Ht 182.9 cm; Wt 93.9 kg
[~2024-01-14 10:42] MED LIST changes: +DOXY-440 PO; -DOXY-444 PO; +EZET10TA21 PO; +EZET10TA58 PO; +IBUP-1022 PO; +NS 1,000 ML IV ONE; -ZETI10TA16 PO
[2024-01-14] MEDS ORDERED: propofoL 200 MG/20 ML VIAL As Ordered ONE (10:58)
[2024-01-14 12:06] VITALS: TEMP 97.5
[2024-01-14 12:22] VITALS: BP 143/70; O2SAT 98
== END 2024-01-14 12:28 | disposition home or self-care (01) ==
LOC: M OPP 10:42
PROVIDERS: ATTEND Internal Medicine Gastroenterology
DX: Z12.11 Encounter for screening for malignant neoplasm of colon (principal); Z86.010 Personal history of colon polyps; D12.3 Benign neoplasm of transverse colon; K64.0 First degree hemorrhoids; Z79.02 Long term (current) use of antithrombotics/antiplatelets

== ENCOUNTER 2024-08-20 11:40 | Emergency (ER) | payer MEDICARE, BC ==
[~2024-08-20] VITALS: Ht 182.9 cm; Wt 96.0 kg
[~2024-08-20 11:40] MED LIST changes: -NS 1,000 ML IV ONE
[2024-08-20 12:24] LABS: BASO # 0.1 10^3/uL (0.0-0.2); BASO % 0.8 % (0.0-1.0); EOS # 0.1 10^3/uL (0.0-0.5); EOS % 0.7 % (0.0-3.0); HEMATOCRIT 42.8 % (42.0-52.0); HEMOGLOBIN 14.8 g/dl (13.5-17.5); LYMPH # 1.4 10^3/uL (1.5-5.0); LYMPH % 18.9 % (24.0-44.0); MEAN CORPUSCULAR HEMOGLOBIN 31.8 pg (27.0-33.0); MEAN CORPUSCULAR HGB CONC 34.6 g/dl (32.0-36.5); MEAN CORPUSCULAR VOLUME 91.8 fl (80.0-96.0); MONO # 0.8 10^3/uL (0.0-0.8); MONO % 10.1 % (2.0-8.0); NEUTROPHILS # 5.2 10^3/uL (1.5-8.5); PLATELET COUNT, AUTOMATED 247 10^3/uL (150-450); RED BLOOD COUNT 4.66 10^6/uL (4.30-6.10); WHITE BLOOD COUNT 7.5 10^3/uL (4.0-10.0)
[2024-08-20] MEDS ORDERED: ISOVUE-370 76% 100ML VIAL As Ordered ONE (12:33)
[2024-08-20 12:44] LABS: ALBUMIN 4.1 G/DL (3.2-5.2); ALKALINE PHOSPHATASE 43 U/L (40-129); ALT/SGPT 33 U/L (7.0-40); AST/SGOT 23 U/L (<34); BILIRUBIN,TOTAL 0.8 MG/DL (0.3-1.2); BLOOD UREA NITROGEN 13 MG/DL (9-23); CALCIUM LEVEL 9.4 MG/DL (8.3-10.6); CARBON DIOXIDE LEVEL 26 MMOL/L (20-31); CHLORIDE LEVEL 104 MMOL/L (98-107); GLOMERULAR FILTRATION RATE > 60.0 (>49); GLUCOSE, FASTING 103 MG/DL (74-106); POTASSIUM SERUM 4.4 MMOL/L (3.5-5.1); SODIUM LEVEL 138 MMOL/L (136-145); TOTAL PROTEIN 7.3 G/DL (5.7-8.2)
[2024-08-20] MEDS ORDERED: HOME MED LIST COMPLETE! XX SCH (12:55)
[2024-08-20 13:14] LABS: CK-MB VALUE MASS < 1.0 NG/ML (<3.6)
[2024-08-20 13:22] LABS: CPK CREATINE PHOSPHOKINASE 81 U/L (46-171); MB/CK RELATIVE INDEX 1.23 (< OR =4)
[2024-08-20 14:00] LABS: CK-MB VALUE MASS < 1.0 NG/ML (<3.6)
[2024-08-20 14:07] LABS: CPK CREATINE PHOSPHOKINASE 79 U/L (46-171); MB/CK RELATIVE INDEX 1.26 (< OR =4)
[2024-08-20 16:45] VITALS: BP 136/80; TEMP 97.9; O2SAT 96
[2024-08-20] MEDS ORDERED: MECL-209 PO (16:52)
== END 2024-08-20 17:02 | disposition home or self-care (01) ==
LOC: M ED 11:40
DX: R42 Dizziness and giddiness (principal); E78.5 Hyperlipidemia, unspecified; R93.0 Abnormal findings on diagnostic imaging of skull and head, not elsewhere classified; I65.23 Occlusion and stenosis of bilateral carotid arteries; Z79.899 Other long term (current) drug therapy
CPT/HCPCS: 70450; 70496; 70498; 70551; 71045; 80047; 80053; 82550; 82553; 84484; 85025; 93005; 93041; 94760; 99285; Q9967